=== PATIENT | female | born 1990 ===

== ENCOUNTER → 2016-12-24 | Outpatient (CLI) | payer BC ==
[~2016-12-24] VITALS: Ht 170.2 cm; Wt 83.6 kg
[~2016-12-24] MED LIST: ARIP2 PO
[2016-12-24 12:24] VITALS: BP 114/75
== END | disposition home or self-care (01) ==
LOC: SRCNTR 12:00
PROVIDERS: ATTEND Hospitalist
DX: F31.9 Bipolar disorder, unspecified (principal); F17.200 Nicotine dependence, unspecified, uncomplicated; R42 Dizziness and giddiness
CPT/HCPCS: G0463